=== PATIENT | female | born 1950 | race Caucasian/White ===

== ENCOUNTER 2023-11-11 15:01 | Emergency (ER) | payer MEDICARE, BC ==
[~2023-11-11] VITALS: Ht 162.6 cm; Wt 46.5 kg
[2023-11-11 15:15] VITALS: TEMP 97.8
[2023-11-11] MEDS: LIDOcaine/epinephrine/tetracaine TOPICAL sol 3 ML syringe TOP ONE (16:00)
[2023-11-11] MEDS: TETanus/Pertussis (Acell)/Diphther VAC/PF (Tdap-Adult) 0.5ml syringe IMVAC ONE (16:00)
[2023-11-11 17:32] VITALS: BP 136/61; PULSE 68; RESP 16; O2SAT 100
== END 2023-11-11 17:33 | disposition home or self-care (01) ==
LOC: ER 15:02
DX: S01.81XA Laceration without foreign body of other part of head, initial encounter (principal); S50.01XA Contusion of right elbow, initial encounter; S42.031A Displaced fracture of lateral end of right clavicle, initial encounter for closed fracture; W01.0XXA Fall on same level from slipping, tripping and stumbling without subsequent striking against object, initial encounter; Y93.89 Activity, other specified; Y92.89 Other specified places as the place of occurrence of the external cause; Y99.8 Other external cause status
CPT/HCPCS: 12011; 70450; 72125; 73030; 73080; 90471; 90715; 99285; J7030; A4565; A6449

== ENCOUNTER 2023-12-15 08:04 | Emergency (ER) | payer MEDICARE, BC ==
[~2023-12-15] VITALS: Ht 160 cm; Wt 44.5 kg
[2023-12-15 09:42] LABS: BASOPHILS % (AUTO) 0.8 % (0-1); EOSINOPHILS % (AUTO) 0.1 % (0-6); HEMATOCRIT 35.7 % (35.0-45.0); HEMOGLOBIN 12.3 g/dl (12.0-16.0); LYMPHOCYTES # (AUTO) 0.7 X10'3 (1.1-4.8); LYMPHOCYTES % (AUTO) 14.5 % (21-51); MEAN CORPUSCULAR HEMOGLOBIN 35.9 PG (27.0-31.0); MEAN CORPUSCULAR HGB CONC 34.4 g/dL (33.0-36.5); MEAN CORPUSCULAR VOLUME 104.3 FL (78-98); MEAN PLATELET VOLUME 7.7 FL (7.4-10.4); MONOCYTES # (AUTO) 0.6 X10'3 (0-0.9); MONOCYTES % (AUTO) 11.7 % (2-12); NEUTROPHILS # (AUTO) 3.8 X10'3 (1.8-7.7); NEUTROPHILS % (AUTO) 72.9 % (42-75); PLATELET COUNT 174 X10'3 (140-440); RED BLOOD COUNT 3.42 X10'6 (4.20-5.60); RED CELL DISTRIBUTION WIDTH 14.1 % (11.5-14.5); WHITE BLOOD COUNT 5.1 X10'3 (4.5-11.0)
[2023-12-15 09:50] LABS: ALBUMIN 3.2 G/DL (3.4-5.0); ANION GAP 9 (8-16); BLOOD UREA NITROGEN 10 MG/DL (7-18); BUN/CREATININE RATIO 14.1 (10.0-20.0); CALCIUM 8.5 MG/DL (8.5-10.1); CHLORIDE 102 MMOL/L (99-107); CREATININE 0.71 MG/DL (0.40-0.90); ETHANOL 132 MG/DL (<10); GLUCOSE 96 MG/DL (70-104); POTASSIUM 3.8 MMOL/L (3.5-5.1); SODIUM 135 MMOL/L (135-145); eCRCL 48 ML/MIN; eGFR 80 ML/MIN
[2023-12-15] MEDS ORDERED: celeCOXIB 100mg capsule PO SCH (09:50)
[2023-12-15] MEDS: normal saline 1000ML IV soln IVB ONE (10:24)
[2023-12-15] MEDS: morphine 2 MG/ML inj. syringe IV PRN (10:31)
[2023-12-15] MEDS: celeCOXIB 100mg capsule PO ONE (12:18)
[2023-12-15 13:12] LABS: BILIRUBIN,URINE NEGATIVE (Neg); CLARITY,URINE CLEAR (Clear); COLOR,URINE YELLOW (Yellow); GLUCOSE, URINE NEGATIVE (Neg); KETONES,URINE NEGATIVE (Neg); LEUKOCYTE ESTERASE ,URINE NEGATIVE (Neg); NITRITES, URINE NEGATIVE (Neg); OCCULT BLOOD,URINE NEGATIVE (Neg); PROTEIN,URINE NEGATIVE (Neg); UROBILINOGEN,URINE 0.2 E.U/dL (0.2-1.0)
[2023-12-15 13:18] LABS: UA COLLECTION TYPE NON-SPECIFIED
[2023-12-15] MEDS ORDERED: ACET-3068 PO (13:34)
[2023-12-15 14:31] VITALS: BP 143/77; PULSE 77; RESP 14; TEMP 98.3; O2SAT 99
== END 2023-12-15 14:35 | disposition home or self-care (01) ==
LOC: ER 08:05
DX: S42.201A Unspecified fracture of upper end of right humerus, initial encounter for closed fracture (principal); F10.129 Alcohol abuse with intoxication, unspecified; K21.9 Gastro-esophageal reflux disease without esophagitis; W18.30XA Fall on same level, unspecified, initial encounter; Y93.89 Activity, other specified; Y92.003 Bedroom of unspecified non-institutional (private) residence as the place of occurrence of the external cause; Y99.8 Other external cause status
CPT/HCPCS: 29125; 36415; 73030; 73080; 80048; 80320; 81003; 85025; 96361; 96374; 99284; J2270; J7030; A4565